=== PATIENT | female | born 1960 | race Two or more races ===

== ENCOUNTER 2021-08-30 14:26 | Inpatient (IN) | payer MEDICAID ==
[~2021-08-30] VITALS: Ht 167.6 cm; Wt 84.7 kg
[~2021-08-30 14:26] MED LIST: AMOX500T86 PO; APIX5TAB PO; AZIT250T9 PO; BUPR-230; DEXT1SYP9 PO; OXCA600T3; PROZAC
[2021-08-30] MEDS ORDERED: AZITHROMYCIN 500MG/ 250ML 250 ML IV ONE (15:15)
[2021-08-30] MEDS ORDERED: methylPREDNISolone SOD SUCC 125 MG/2 ML VL IV ONE (15:15)
[2021-08-30] MEDS ORDERED: CHOLECALCIFEROL (VITD3) 2,000 UNIT CAP/TAB PO ONE (15:15)
[2021-08-30] MEDS ORDERED: ASCORBIC ACID 500 MG TAB PO ONE (15:15)
[2021-08-30] MEDS ORDERED: ZINC SULFATE 220mg CAP or TAB PO ONE (15:15)
[2021-08-30] MEDS ORDERED: ACETAMINOPHEN 325 MG TAB PO ONE (15:30)
[2021-08-30 15:56] LABS: Basophils # (auto) 0 10 ^3/uL (0-0.2); Basophils % (auto) 0.3 % (0.0-2.0); Eosinophils # (auto) 0 10 ^3/uL (0-0.8); Hematocrit 37.3 % (36.0-46.0); Hemoglobin 12.6 g/dL (12.2-16.2); Lymphocytes # (auto) 0.8 10 ^3/uL (0.4-5.4); Lymphocytes % (auto) 10.7 % (10.0-50.0); Mean Corpuscular Hemoglobin 30.2 pg (28.0-32.0); Mean Corpuscular Hgb Conc. 33.7 g/dL (32.0-36.0); Mean Corpuscular Volume 89.7 fL (80.0-100.0); Monocytes # (auto) 1.2 10 ^3/uL (0-1.3); Monocytes % (auto) 15.9 % (0.0-12.0); Neutrophils # (auto) 5.7 10 ^3/uL (1.6-8.6); Neutrophils % (auto) 73.1 % (37.0-80.0); Red Blood Cells 4.15 10^6/uL (4.0-5.20); Red Cell Distribution Width 13.9 % (11.8-14.3); White Blood Cell 7.7 10^3/uL (4.4-10.8)
[2021-08-30 16:15] LABS: Albumin 2.8 g/dL (3.4-5.0); Calcium 7.4 mg/dL (8.5-10.1); Potassium 4.3 mmol/L (3.5-5.1)
[2021-08-30] MEDS ORDERED: IBUPROFEN 400 MG TAB PO ONE (16:15)
[2021-08-30 16:22] LABS: Bilirubin, Total 0.4 mg/dL (0.2-1.0); CRP High Sensitivity 14.5 mg/dL (< 0.3); Total Protein 6.9 g/dL (6.4-8.2)
[2021-08-30] MEDS ORDERED: NITROGLYCERIN 0.4 MG SL TAB SL PRN ×2 (17:30→19:15)
[2021-08-30] MEDS ORDERED: MORPHINE SULFATE INJECTION 2 MG/ML SYRG IV PRN ×3 (17:30→19:15)
[2021-08-30] MEDS ORDERED: REMDESIVIR PER PHARMACY 0 ML IV SCH (18:15)
[2021-08-30] MEDS ORDERED: FUROSEMIDE 20 MG/2 ML VIAL IV ONE (18:15)
[2021-08-30] MEDS ORDERED: FAMOTIDINE (10MG/ML) 2ML VL IV ONE (18:15)
[2021-08-30] MEDS ORDERED: ACETAMINOPHEN 500 MG TAB PO PRN (18:15)
[2021-08-30] MEDS ORDERED: ONDANSETRON HCL 4 MG/2 ML VIAL IV PRN (19:15)
[2021-08-30] MEDS ORDERED: HYDROcodone-ACET 5/325MG TAB PO PRN (19:15)
[2021-08-30] MEDS ORDERED: DOCUSATE SOD 100 MG CAP PO PRN (19:15)
[2021-08-30] MEDS ORDERED: ACETAMINOPHEN 325 MG TAB PO PRN (19:15)
[2021-08-30] MEDS ORDERED: ALUM & MAG HYDROX-SIMETH LIQ(MAALOX) 30 ML PO PRN (19:15)
[2021-08-30] MEDS ORDERED: LORazepam 0.5 MG TAB PO PRN (19:15)
[2021-08-30] MEDS ORDERED: ALBUMIN 25% 100 ML IV ONE (19:15)
[2021-08-30] MEDS: BUDESONIDE (INHALATION) 180 MCG IH IN SCH (19:45)
[2021-08-30 19:56] LABS: Basophils # (auto) 0 10 ^3/uL (0-0.2); Basophils % (auto) 0.4 % (0.0-2.0); Eosinophils # (auto) 0 10 ^3/uL (0-0.8); Hematocrit 36.6 % (36.0-46.0); Hemoglobin 12.6 g/dL (12.2-16.2); Lymphocytes # (auto) 0.5 10 ^3/uL (0.4-5.4); Lymphocytes % (auto) 6.7 % (10.0-50.0); Mean Corpuscular Hemoglobin 30.5 pg (28.0-32.0); Mean Corpuscular Hgb Conc. 34.4 g/dL (32.0-36.0); Mean Corpuscular Volume 88.9 fL (80.0-100.0); Monocytes % (auto) 12.8 % (0.0-12.0); Neutrophils % (auto) 80.1 % (37.0-80.0); Red Blood Cells 4.12 10^6/uL (4.0-5.20); Red Cell Distribution Width 14.1 % (11.8-14.3); White Blood Cell 7.5 10^3/uL (4.4-10.8)
[2021-08-30 20:03] LABS: Potassium 4.8 mmol/L (3.5-5.1)
[2021-08-30] MEDS: ALBUTEROL SULF HFA 90MCG INH 200DOSE IN PRN (20:05)
[2021-08-30 20:14] LABS: Albumin 2.8 g/dL (3.4-5.0); BUN/Creatinine Ratio 13.9; Bilirubin, Total 0.4 mg/dL (0.2-1.0); CRP High Sensitivity 15.3 mg/dL (< 0.3); Calcium 7.5 mg/dL (8.5-10.1); Cholesterol 118 mg/dL (< 200); Magnesium 2.8 mg/dL (1.6-2.6); Total Protein 7.2 g/dL (6.4-8.2)
[2021-08-30 20:15] LABS: Thyroid Stimulating Hormone 0.71 uIU/mL (0.358-3.74)
[2021-08-30 20:18] LABS: HDL Cholesterol 30 mg/dL (40-59); LDL Cholesterol 71 mg/dL (< 100); Triglycerides 126 mg/dL (< 150)
[2021-08-30] MEDS ORDERED: REMDESIVIR 200 MG in NS 210ml LOADING DOSE ADULT IV ONE (21:00)
[2021-08-30] MEDS ORDERED: ENOXAPARIN SOD 40 MG/0.4 ML SYRINGE SC SCH (22:00)
[2021-08-30] MEDS: SODIUM CHLORIDE 0.9% 1,000 ML IV SCH ×2 (22:00→23:23)
[2021-08-30] MEDS: OXcarbazepine 300 MG TAB PO SCH (22:00)
[2021-08-30] MEDS: POTASSIUM CHL 20 Meq TABLET PO SCH (23:22)
[2021-08-30] MEDS: DOXYCYCLINE 100MG/250ML 250 ML IV SCH (23:22)
[2021-08-30] MEDS: APIXABAN 5 MG TAB PO SCH (23:22)
[2021-08-31 01:12] VITALS: BP 82/55
[2021-08-31] MEDS ORDERED: ALBUMIN 5% 250 ML IV ONE (02:30)
[2021-08-31] MEDS ORDERED: FUROSEMIDE 20 MG/2 ML VIAL IV SCH (06:00)
[2021-08-31] MEDS: ALBUMIN 25% 100 ML IV SCH ×3 (06:54→22:00)
[2021-08-31] MEDS ORDERED: buPROPion HCL 75 MG TAB PO SCH (07:00)
[2021-08-31] MEDS ORDERED: FAMOTIDINE (10MG/ML) 2ML VL IV SCH (10:00)
[2021-08-31] MEDS: DOXYCYCLINE 100MG/250ML 250 ML IV SCH ×2 (10:40→22:00)
[2021-08-31] MEDS: DexAMETHasone SOD PHOS 10MG/1ML VIAL INJ IV SCH (10:40)
[2021-08-31] MEDS: APIXABAN 5 MG TAB PO SCH (10:40)
[2021-08-31] MEDS: POTASSIUM CHL 20 Meq TABLET PO SCH ×2 (10:40→22:00)
[2021-08-31] MEDS: ASCORBIC ACID 1,000 MG TAB PO SCH (10:41)
[2021-08-31] MEDS: OXcarbazepine 300 MG TAB PO SCH (10:41)
[2021-08-31] MEDS: IVERMECTIN 3 MG TAB PO SCH (10:41)
[2021-08-31] MEDS: CHOLECALCIFEROL (VITD3) 2,000 UNIT CAP/TAB PO SCH (10:41)
[2021-08-31 11:02] LABS: Alcohol, Urine < 3.0 mg/dL (0-10); Amphetamine Screen, Urine NEGATIVE (NEGATIVE); Barbiturate Scree,Urine NEGATIVE (NEGATIVE); Benzodiazephine Screen, Urine NEGATIVE (NEGATIVE); Cannabinoid Screen, Urine NEGATIVE (NEGATIVE); Cocaine Screen, Urine NEGATIVE (NEGATIVE); Opiate Scree,Urine NEGATIVE (NEGATIVE); Phencyclidine Screen, Urine NEGATIVE (NEGATIVE)
[2021-08-31] MEDS: ALBUTEROL SULF HFA 90MCG INH 200DOSE IN PRN ×2 (11:07→19:08)
[2021-08-31] MEDS: BUDESONIDE (INHALATION) 180 MCG IH IN SCH ×2 (11:07→19:07)
[2021-08-31] MEDS ORDERED: cefTRIAXone 1GM/50ML D5W 50 ML IV ONE (14:15)
[2021-08-31] MEDS ORDERED: ALBUMIN 25% 50 ML IV ONE (14:23)
[2021-08-31 14:50] LABS: Basophils # (auto) 0 10 ^3/uL (0-0.2); Basophils % (auto) 0.3 % (0.0-2.0); Eosinophils # (auto) 0 10 ^3/uL (0-0.8); Hematocrit 39.1 % (36.0-46.0); Hemoglobin 12.9 g/dL (12.2-16.2); Lymphocytes # (auto) 0.7 10 ^3/uL (0.4-5.4); Mean Corpuscular Hemoglobin 30.1 pg (28.0-32.0); Mean Corpuscular Volume 91.1 fL (80.0-100.0); Monocytes # (auto) 1.1 10 ^3/uL (0-1.3); Monocytes % (auto) 9.2 % (0.0-12.0); Neutrophils # (auto) 9.8 10 ^3/uL (1.6-8.6); Neutrophils % (auto) 84.5 % (37.0-80.0); Red Blood Cells 4.29 10^6/uL (4.0-5.20); Red Cell Distribution Width 14.3 % (11.8-14.3); White Blood Cell 11.6 10^3/uL (4.4-10.8)
[2021-08-31 15:03] LABS: INR 1.06 (0.9-1.15)
[2021-08-31 15:06] LABS: Albumin 3.5 g/dL (3.4-5.0); Calcium 7.9 mg/dL (8.5-10.1); Potassium 3.9 mmol/L (3.5-5.1)
[2021-08-31 15:09] LABS: BUN/Creatinine Ratio 16.1; Bilirubin, Total 0.4 mg/dL (0.2-1.0); Phosphorus 2.6 mg/dL (2.5-4.90); Total Protein 7.7 g/dL (6.4-8.2)
[2021-08-31] MEDS: REMDESIVIR 100mg 100 MG in SODIUM CHL 0.9% 230 ML IV SCH (15:17)
[2021-08-31] MEDS ORDERED: TOCILIZUMAB 400 MG in SODIUM CHL 0.9% 80 ML IV SCH (22:00)
[2021-08-31] MEDS ORDERED: busPIRone HCL 10 MG TAB PO SCH (22:00)
[2021-08-31] MEDS: ENOXAPARIN SOD 80 MG/0.8ML SYRINGE SC SCH (22:00)
[2021-08-31] MEDS ORDERED: risperiDONE 1 MG TAB PO SCH (22:00)
[2021-08-31] MEDS ORDERED: traZODone HCL 50 MG TAB PO SCH (22:00)
[2021-09-01] MEDS: ALBUTEROL SULF HFA 90MCG INH 200DOSE IN PRN ×2 (07:09→23:26)
[2021-09-01] MEDS: BUDESONIDE (INHALATION) 180 MCG IH IN SCH ×2 (07:10→19:36)
[2021-09-01] MEDS: cefTRIAXone 1GM/50ML D5W 50 ML IV SCH (08:37)
[2021-09-01] MEDS ORDERED: OXcarbazepine 300 MG TAB PO SCH (10:00)
[2021-09-01] MEDS: DexAMETHasone SOD PHOS 10MG/1ML VIAL INJ IV SCH (10:17)
[2021-09-01] MEDS: FUROSEMIDE 20 MG/2 ML VIAL IV SCH (10:18)
[2021-09-01] MEDS: DOXYCYCLINE 100MG/250ML 250 ML IV SCH ×2 (10:18→22:46)
[2021-09-01] MEDS: IVERMECTIN 3 MG TAB PO SCH (10:18)
[2021-09-01] MEDS: FAMOTIDINE (10MG/ML) 2ML VL IV SCH (10:18)
[2021-09-01] MEDS: POTASSIUM CHL 20 Meq TABLET PO SCH ×2 (10:18→22:46)
[2021-09-01] MEDS: CHOLECALCIFEROL (VITD3) 2,000 UNIT CAP/TAB PO SCH (10:19)
[2021-09-01] MEDS: ASCORBIC ACID 1,000 MG TAB PO SCH (10:19)
[2021-09-01] MEDS: ENOXAPARIN SOD 80 MG/0.8ML SYRINGE SC SCH ×2 (10:19→22:46)
[2021-09-01 10:33] LABS: Albumin 3.5 g/dL (3.4-5.0); Calcium 7.8 mg/dL (8.5-10.1); Potassium 4.5 mmol/L (3.5-5.1)
[2021-09-01 10:36] LABS: BUN/Creatinine Ratio 24.1; Bilirubin, Total 0.4 mg/dL (0.2-1.0); Total Protein 6.6 g/dL (6.4-8.2)
[2021-09-01] MEDS: REMDESIVIR 100mg 100 MG in SODIUM CHL 0.9% 230 ML IV SCH (15:06)
[2021-09-01] MEDS: OXcarbazepine 300 MG TAB PO SCH (19:06)
[2021-09-01] MEDS: busPIRone HCL 10 MG TAB PO SCH (19:07)
[2021-09-01] MEDS: traZODone HCL 50 MG TAB PO SCH (19:07)
[2021-09-01] MEDS: risperiDONE 1 MG TAB PO SCH (19:07)
[2021-09-02] MEDS: ALBUTEROL SULF HFA 90MCG INH 200DOSE IN PRN ×2 (06:14→20:55)
[2021-09-02] MEDS: BUDESONIDE (INHALATION) 180 MCG IH IN SCH ×2 (06:14→19:56)
[2021-09-02] MEDS: OXcarbazepine 300 MG TAB PO SCH ×2 (07:07→19:00)
[2021-09-02 07:53] LABS: Albumin 3.2 g/dL (3.4-5.0); Calcium 7.8 mg/dL (8.5-10.1); Potassium 4.7 mmol/L (3.5-5.1)
[2021-09-02 07:57] LABS: BUN/Creatinine Ratio 28.6; Bilirubin, Total 0.8 mg/dL (0.2-1.0); Total Protein 6.4 g/dL (6.4-8.2)
[2021-09-02] MEDS: cefTRIAXone 1GM/50ML D5W 50 ML IV SCH (08:34)
[2021-09-02] MEDS: DexAMETHasone SOD PHOS 10MG/1ML VIAL INJ IV SCH (12:50)
[2021-09-02] MEDS: IVERMECTIN 3 MG TAB PO SCH (12:51)
[2021-09-02] MEDS: ASCORBIC ACID 1,000 MG TAB PO SCH (12:51)
[2021-09-02] MEDS: FUROSEMIDE 20 MG/2 ML VIAL IV SCH (12:51)
[2021-09-02] MEDS: FAMOTIDINE (10MG/ML) 2ML VL IV SCH (12:51)
[2021-09-02] MEDS: POTASSIUM CHL 20 Meq TABLET PO SCH ×2 (12:51→21:44)
[2021-09-02] MEDS: ENOXAPARIN SOD 80 MG/0.8ML SYRINGE SC SCH ×2 (12:52→21:43)
[2021-09-02] MEDS: CHOLECALCIFEROL (VITD3) 2,000 UNIT CAP/TAB PO SCH (12:52)
[2021-09-02] MEDS: DOXYCYCLINE 100MG/250ML 250 ML IV SCH ×2 (13:11→21:43)
[2021-09-02] MEDS ORDERED: FUROSEMIDE 40 MG/4 ML VIAL IV ONE (13:30)
[2021-09-02] MEDS: REMDESIVIR 100mg 100 MG in SODIUM CHL 0.9% 230 ML IV SCH (15:18)
[2021-09-02 18:37] VITALS: BP 116/66
[2021-09-02] MEDS ORDERED: LEXAPRO 10MG PO SCH (19:00)
[2021-09-02] MEDS: risperiDONE 1 MG TAB PO SCH (19:01)
[2021-09-02] MEDS: traZODone HCL 50 MG TAB PO SCH (19:01)
[2021-09-02] MEDS: busPIRone HCL 10 MG TAB PO SCH (19:01)
[2021-09-02 19:56] VITALS: BP 116/66
[2021-09-02 22:00] VITALS: BP 121/70
[2021-09-02 22:36] VITALS: BP 121/70
[2021-09-02 22:59] VITALS: BP 121/70
[2021-09-03] VITALS (8 sets, daily range): BP systolic 101–122; BP diastolic 51–73
[2021-09-03 06:37] LABS: Basophils # (auto) 0 10 ^3/uL (0-0.2); Basophils % (auto) 0.2 % (0.0-2.0); Eosinophils # (auto) 0 10 ^3/uL (0-0.8); Eosinophils % (auto) 0.1 % (0.0-7.0); Hematocrit 38.1 % (36.0-46.0); Lymphocytes # (auto) 0.5 10 ^3/uL (0.4-5.4); Lymphocytes % (auto) 3.2 % (10.0-50.0); Mean Corpuscular Hemoglobin 30.5 pg (28.0-32.0); Mean Corpuscular Volume 89.7 fL (80.0-100.0); Neutrophils # (auto) 13.3 10 ^3/uL (1.6-8.6); Neutrophils % (auto) 89.5 % (37.0-80.0); Red Blood Cells 4.25 10^6/uL (4.0-5.20); Red Cell Distribution Width 14.6 % (11.8-14.3); White Blood Cell 14.8 10^3/uL (4.4-10.8)
[2021-09-03] MEDS: OXcarbazepine 300 MG TAB PO SCH ×2 (06:51→18:34)
[2021-09-03 06:53] LABS: Calcium 7.9 mg/dL (8.5-10.1)
[2021-09-03 06:59] LABS: Albumin 3.1 g/dL (3.4-5.0); BUN/Creatinine Ratio 29.4; Bilirubin, Total 0.8 mg/dL (0.2-1.0); Total Protein 6.4 g/dL (6.4-8.2)
[2021-09-03] MEDS: cefTRIAXone 1GM/50ML D5W 50 ML IV SCH (08:37)
[2021-09-03] MEDS: FUROSEMIDE 20 MG/2 ML VIAL IV SCH (09:36)
[2021-09-03] MEDS: FAMOTIDINE (10MG/ML) 2ML VL IV SCH (09:37)
[2021-09-03] MEDS: ASCORBIC ACID 1,000 MG TAB PO SCH (09:38)
[2021-09-03] MEDS: IVERMECTIN 3 MG TAB PO SCH (09:38)
[2021-09-03] MEDS: POTASSIUM CHL 20 Meq TABLET PO SCH ×2 (09:38→21:49)
[2021-09-03] MEDS: DOXYCYCLINE 100MG/250ML 250 ML IV SCH ×2 (09:38→21:44)
[2021-09-03] MEDS: CHOLECALCIFEROL (VITD3) 2,000 UNIT CAP/TAB PO SCH (09:39)
[2021-09-03] MEDS: ENOXAPARIN SOD 80 MG/0.8ML SYRINGE SC SCH ×2 (09:39→21:44)
[2021-09-03] MEDS: DexAMETHasone SOD PHOS 10MG/1ML VIAL INJ IV SCH (10:34)
[2021-09-03] MEDS: guaiFENesin-DM 100/10mg/5ml SYR PO PRN ×2 (10:35→17:20)
[2021-09-03] MEDS ORDERED: OXCA600T3 PO (12:10)
[2021-09-03] MEDS ORDERED: RISP0.5T45 PO (12:16)
[2021-09-03] MEDS ORDERED: ESCI-28 PO (12:16)
[2021-09-03] MEDS ORDERED: TRAZ100T3 PO (12:16)
[2021-09-03] MEDS ORDERED: BUSP10TA90 PO (12:16)
[2021-09-03] MEDS: ALBUTEROL SULF HFA 90MCG INH 200DOSE IN PRN ×2 (14:56→21:53)
[2021-09-03] MEDS: BUDESONIDE (INHALATION) 180 MCG IH IN SCH ×2 (14:56→21:53)
[2021-09-03] MEDS: REMDESIVIR 100mg 100 MG in SODIUM CHL 0.9% 230 ML IV SCH (15:25)
[2021-09-03] MEDS: LEXAPRO 10MG PO SCH (18:34)
[2021-09-03] MEDS: traZODone HCL 50 MG TAB PO SCH (18:34)
[2021-09-03] MEDS: busPIRone HCL 10 MG TAB PO SCH (18:34)
[2021-09-03] MEDS ORDERED: RISP1TAB63 PO (18:46)
[2021-09-03] MEDS ORDERED: risperiDONE 1 MG TAB PO SCH (19:00)
[2021-09-04 05:00] VITALS: BP 113/57
[2021-09-04] MEDS: OXcarbazepine 300 MG TAB PO SCH ×2 (06:37→17:18)
[2021-09-04] MEDS: ALBUTEROL SULF HFA 90MCG INH 200DOSE IN PRN ×2 (06:47→19:30)
[2021-09-04] MEDS: BUDESONIDE (INHALATION) 180 MCG IH IN SCH ×2 (06:47→19:30)
[2021-09-04] MEDS: cefTRIAXone 1GM/50ML D5W 50 ML IV SCH (09:04)
[2021-09-04] MEDS: DexAMETHasone SOD PHOS 10MG/1ML VIAL INJ IV SCH (09:06)
[2021-09-04] MEDS: FUROSEMIDE 20 MG/2 ML VIAL IV SCH (09:09)
[2021-09-04] MEDS: FAMOTIDINE (10MG/ML) 2ML VL IV SCH (09:09)
[2021-09-04] MEDS: DOXYCYCLINE 100MG/250ML 250 ML IV SCH (09:10)
[2021-09-04] MEDS: POTASSIUM CHL 20 Meq TABLET PO SCH (09:10)
[2021-09-04] MEDS: IVERMECTIN 3 MG TAB PO SCH (09:10)
[2021-09-04] MEDS: CHOLECALCIFEROL (VITD3) 2,000 UNIT CAP/TAB PO SCH (09:11)
[2021-09-04] MEDS: ENOXAPARIN SOD 80 MG/0.8ML SYRINGE SC SCH ×2 (09:11→21:20)
[2021-09-04] MEDS: ASCORBIC ACID 1,000 MG TAB PO SCH (09:11)
[2021-09-04] MEDS: busPIRone HCL 10 MG TAB PO SCH (17:16)
[2021-09-04] MEDS: traZODone HCL 50 MG TAB PO SCH (17:17)
[2021-09-04] MEDS: risperiDONE 1 MG TAB PO SCH (17:17)
[2021-09-04] MEDS: LEXAPRO 10MG PO SCH (17:47)
[2021-09-04 18:30] VITALS: BP 105/50
[2021-09-04 18:32] VITALS: BP 104/50
[2021-09-04 21:11] VITALS: BP 115/53
[2021-09-04 22:00] VITALS: BP 121/69
[2021-09-05] VITALS (9 sets, daily range): BP systolic 111–125; BP diastolic 53–73
[2021-09-05] MEDS: guaiFENesin-DM 100/10mg/5ml SYR PO PRN (03:33)
[2021-09-05] MEDS: ALBUTEROL SULF HFA 90MCG INH 200DOSE IN PRN ×2 (06:04→19:30)
[2021-09-05] MEDS: BUDESONIDE (INHALATION) 180 MCG IH IN SCH ×2 (06:05→19:30)
[2021-09-05] MEDS: OXcarbazepine 300 MG TAB PO SCH ×2 (06:09→16:46)
[2021-09-05 07:10] LABS: Albumin 2.8 g/dL (3.4-5.0); Calcium 8.3 mg/dL (8.5-10.1); Potassium 4.1 mmol/L (3.5-5.1)
[2021-09-05 07:25] LABS: Bilirubin, Total 0.7 mg/dL (0.2-1.0); Total Protein 6.5 g/dL (6.4-8.2)
[2021-09-05] MEDS: FUROSEMIDE 20 MG/2 ML VIAL IV SCH (08:00)
[2021-09-05] MEDS: DexAMETHasone SOD PHOS 10MG/1ML VIAL INJ IV SCH (08:00)
[2021-09-05] MEDS: FAMOTIDINE (10MG/ML) 2ML VL IV SCH (08:00)
[2021-09-05] MEDS: cefTRIAXone 1GM/50ML D5W 50 ML IV SCH (08:00)
[2021-09-05] MEDS: ASCORBIC ACID 1,000 MG TAB PO SCH (08:01)
[2021-09-05] MEDS: ENOXAPARIN SOD 80 MG/0.8ML SYRINGE SC SCH (08:01)
[2021-09-05] MEDS: CHOLECALCIFEROL (VITD3) 2,000 UNIT CAP/TAB PO SCH (08:01)
[2021-09-05] MEDS: LEXAPRO 10MG PO SCH (16:45)
[2021-09-05] MEDS: traZODone HCL 50 MG TAB PO SCH (16:45)
[2021-09-05] MEDS: busPIRone HCL 10 MG TAB PO SCH (16:45)
[2021-09-05] MEDS: risperiDONE 1 MG TAB PO SCH (16:45)
[2021-09-05] MEDS: APIXABAN 5 MG TAB PO SCH (22:00)
[2021-09-06] VITALS (50 sets, daily range): BP systolic 70–151; BP diastolic 45–65
[2021-09-06] MEDS: OXcarbazepine 300 MG TAB PO SCH ×2 (06:28→19:00)
[2021-09-06] MEDS: ALBUTEROL SULF HFA 90MCG INH 200DOSE IN PRN (06:50)
[2021-09-06] MEDS: BUDESONIDE (INHALATION) 180 MCG IH IN SCH (06:50)
[2021-09-06] MEDS: cefTRIAXone 1GM/50ML D5W 50 ML IV SCH (08:51)
[2021-09-06] MEDS: DexAMETHasone SOD PHOS 10MG/1ML VIAL INJ IV SCH (08:51)
[2021-09-06] MEDS: FUROSEMIDE 20 MG/2 ML VIAL IV SCH (08:54)
[2021-09-06] MEDS: APIXABAN 5 MG TAB PO SCH (08:55)
[2021-09-06] MEDS: FAMOTIDINE (10MG/ML) 2ML VL IV SCH (08:55)
[2021-09-06] MEDS: CHOLECALCIFEROL (VITD3) 2,000 UNIT CAP/TAB PO SCH (08:55)
[2021-09-06] MEDS: ASCORBIC ACID 1,000 MG TAB PO SCH (08:55)
[2021-09-06] MEDS ORDERED: LORazepam 2MG/ML-1ML VIAL ONE (11:30)
[2021-09-06] MEDS ORDERED: LORazepam 2MG/ML-1ML VIAL IV PRN (11:45)
[2021-09-06] MEDS ORDERED: ROCURONIUM 10MG/ML 10ML VIAL IV ONE (12:44)
[2021-09-06] MEDS ORDERED: ETOMIDATE (2MG/ML) 20ML VIAL IV ONE (12:44)
[2021-09-06] MEDS ORDERED: SUCCINYLCHOLINE CHLORIDE 20 MG/ML 10ML VIAL IV ONE (12:44)
[2021-09-06] MEDS ORDERED: MIDAZOLAM DRIP 50 mg/50mL 50 ML IV ONE (12:48)
[2021-09-06] MEDS ORDERED: fentaNYL Drip 2500mCg/250mlNS 250 ML IV ONE (12:48)
[2021-09-06] MEDS ORDERED: MIDAZOLAM HCL 5 MG/ML-1ML VIAL ONE (12:50)
[2021-09-06] MEDS ORDERED: PROPOFOL 100 ML IV ONE (13:31)
[2021-09-06] MEDS: ATRACURIUM BESYLATE 1,000 MG in D5W 5% 150 ML IV SCH (13:45)
[2021-09-06] MEDS ORDERED: fentaNYL Drip 2500mCg/250mlNS 250 ML IV SCH ×2 (13:45)
[2021-09-06] MEDS ORDERED: PROPOFOL 100 ML IV SCH (13:45)
[2021-09-06] MEDS ORDERED: SODIUM CHLORIDE 0.9% 1,000 ML IV ONE ×3 (13:45)
[2021-09-06] MEDS: PROPOFOL 100 ML IV SCH (13:45)
[2021-09-06] MEDS ORDERED: MIDAZOLAM DRIP 50 mg/50mL 50 ML IV SCH (13:45)
[2021-09-06] MEDS ORDERED: NOREPINEPHRINE 8 MG/250ML KIT 250 ML IV SCH ×3 (13:45)
[2021-09-06 15:15] LABS: Basophils # (auto) 0 10 ^3/uL (0-0.2); Eosinophils # (auto) 0.1 10 ^3/uL (0-0.8); Hematocrit 35.3 % (36.0-46.0); Lymphocytes # (auto) 0.2 10 ^3/uL (0.4-5.4); Lymphocytes % (auto) 1.2 % (10.0-50.0); Red Cell Distribution Width 14.6 % (11.8-14.3)
[2021-09-06 15:27] LABS: INR 1.53 (0.9-1.15); Partial Thromboplastin Time 26.7 sec (23.6-33.0)
[2021-09-06 15:28] LABS: Basophils % (auto) 0.1 % (0.0-2.0); Eosinophils % (auto) 0.7 % (0.0-7.0); Hemoglobin 11.7 g/dL (12.2-16.2); Mean Corpuscular Hgb Conc. 33.1 g/dL (32.0-36.0); Mean Corpuscular Volume 90.7 fL (80.0-100.0); Monocytes # (auto) 0.4 10 ^3/uL (0-1.3); Monocytes % (auto) 3.1 % (0.0-12.0); Neutrophils # (auto) 13.9 10 ^3/uL (1.6-8.6); Neutrophils % (auto) 94.9 % (37.0-80.0); Potassium 3.6 mmol/L (3.5-5.1); Red Blood Cells 3.89 10^6/uL (4.0-5.20); White Blood Cell 14.6 10^3/uL (4.4-10.8)
[2021-09-06 15:37] LABS: Albumin 2.3 g/dL (3.4-5.0); BUN/Creatinine Ratio 39.7; Bilirubin, Total 0.6 mg/dL (0.2-1.0); Calcium 7.6 mg/dL (8.5-10.1); Magnesium 2.3 mg/dL (1.6-2.6); Phosphorus 3.5 mg/dL (2.5-4.90); Total Protein 5.6 g/dL (6.4-8.2)
[2021-09-06] MEDS: MIDAZOLAM DRIP 50 mg/50mL 50 ML IV SCH (18:20)
[2021-09-06] MEDS: busPIRone HCL 10 MG TAB PO SCH (19:00)
[2021-09-06] MEDS: LEXAPRO 10MG PO SCH (19:00)
[2021-09-06] MEDS ORDERED: PHENYLEPHRINE IV 250 ML IV ONE ×2 (21:17→22:57)
[2021-09-06] MEDS: PHENYLEPHRINE IV 250 ML IV SCH (21:46)
[2021-09-06] MEDS: MEROPENEM 1GM IVPB 100 ML IV SCH (21:47)
[2021-09-06] MEDS: PANTOPRAZOLE 40 MG/10 ML VIAL INJ IV SCH (21:47)
[2021-09-07] VITALS (108 sets, daily range): BP systolic 80–180; BP diastolic 44–74
[2021-09-07 04:21] LABS: Hemoglobin 12.2 g/dL (12.2-16.2); Mean Corpuscular Hemoglobin 30.5 pg (28.0-32.0); Mean Corpuscular Volume 92.5 fL (80.0-100.0); Red Cell Distribution Width 14.7 % (11.8-14.3); White Blood Cell 25.3 10^3/uL (4.4-10.8)
[2021-09-07 04:31] LABS: Albumin 2.1 g/dL (3.4-5.0); Calcium 7.9 mg/dL (8.5-10.1); Potassium 3.8 mmol/L (3.5-5.1)
[2021-09-07 04:34] LABS: BUN/Creatinine Ratio 27.4
[2021-09-07 04:36] LABS: Total Protein 6.1 g/dL (6.4-8.2)
[2021-09-07] MEDS: PHENYLEPHRINE IV 250 ML IV SCH ×3 (05:20→13:40)
[2021-09-07] MEDS: MIDAZOLAM DRIP 50 mg/50mL 50 ML IV SCH ×5 (05:21→18:53)
[2021-09-07 05:43] LABS: Basophils % (manual) 0 (0.0-2.0); Blast Cells 0; Eosinophils % (manual) 0 (0-7); Metamyelocytes % 0; Monocytes % (manual) 0 (0-12); Myelocytes % 0; Promyelocytes % 0; Reactive Lymphocytes 0
[2021-09-07 06:17] LABS: Urine Bacteria NONE SEEN /hpf (None Seen); Urine Blood 2+ /uL (Negative); Urine Hyaline Cast MANY /lpf (0 - 2); Urine Mucus FEW (None Seen); Urine Specific Gravity 1.026 (1.001-1.035); Urine WBC 9 /hpf (0 - 5)
[2021-09-07] MEDS: ALBUTEROL SULF 2.5 MG/0.5ML(0.5%) NEB SOLN NEB SCH ×3 (06:37→22:10)
[2021-09-07] MEDS: BUDESONIDE (INHALATION) 0.5 MG/2 ML NEB NEB SCH ×2 (06:37→22:10)
[2021-09-07] MEDS: MEROPENEM 1GM IVPB 100 ML IV SCH ×3 (06:41→22:06)
[2021-09-07] MEDS: OXcarbazepine 300 MG TAB PO SCH (06:41)
[2021-09-07] MEDS: fentaNYL Drip 2500mCg/250mlNS 250 ML IV SCH ×3 (09:55→20:47)
[2021-09-07] MEDS: PANTOPRAZOLE 40 MG/10 ML VIAL INJ IV SCH ×2 (10:01→22:06)
[2021-09-07] MEDS: FUROSEMIDE 40 MG/4 ML VIAL IV SCH (10:02)
[2021-09-07] MEDS: DexAMETHasone SOD PHOS 10MG/1ML VIAL INJ IV SCH (10:02)
[2021-09-07] MEDS: CHOLECALCIFEROL (VITD3) 2,000 UNIT CAP/TAB PO SCH (10:02)
[2021-09-07] MEDS: ATRACURIUM BESYLATE 1,000 MG in D5W 5% 150 ML IV SCH (10:03)
[2021-09-07] MEDS: PROPOFOL 100 ML IV SCH ×4 (10:04→20:45)
[2021-09-07 10:44] LABS: Band Neutrophils % (manual) 10; Lymphocytes % (manual) 7 (10.0-50.0)
[2021-09-07] MEDS ORDERED: ACETAMINOPHEN 650 mg PER 20.3 mL UD GT PRN (10:45)
[2021-09-07] MEDS: LINEZOLID 600MG/300ML 300 ML IV SCH ×2 (11:14→22:06)
[2021-09-07] MEDS: NOREPINEPHRINE BITARTRATE 16 MG in SODIUM CHL 0.9% 234 ML IV SCH ×2 (11:15→21:27)
[2021-09-07] MEDS: ENOXAPARIN SOD 40 MG/0.4 ML SYRINGE SC SCH (22:06)
[2021-09-08] VITALS (107 sets, daily range): BP systolic 107–138; BP diastolic 46–71
[2021-09-08] MEDS: PROPOFOL 100 ML IV SCH (00:33)
[2021-09-08] MEDS: fentaNYL Drip 2500mCg/250mlNS 250 ML IV SCH ×3 (04:35→21:22)
[2021-09-08 04:43] LABS: Hemoglobin 12.1 g/dL (12.2-16.2); Mean Corpuscular Hemoglobin 29.6 pg (28.0-32.0)
[2021-09-08 04:44] LABS: Hematocrit 37.6 % (36.0-46.0); Mean Corpuscular Volume 92.5 fL (80.0-100.0); Red Blood Cells 4.07 10^6/uL (4.0-5.20); Red Cell Distribution Width 14.9 % (11.8-14.3)
[2021-09-08 04:48] LABS: Albumin 1.9 g/dL (3.4-5.0); Calcium 8.6 mg/dL (8.5-10.1); Potassium 4.7 mmol/L (3.5-5.1)
[2021-09-08 04:52] LABS: BUN/Creatinine Ratio 20.4; Bilirubin, Total 0.3 mg/dL (0.2-1.0); Total Protein 6.6 g/dL (6.4-8.2)
[2021-09-08 05:00] LABS: White Blood Cell 33.1 10^3/uL (4.4-10.8)
[2021-09-08 05:02] LABS: Basophils % (manual) 0 (0.0-2.0); Blast Cells 0; Eosinophils % (manual) 0 (0-7); Metamyelocytes % 0; Myelocytes % 0; Promyelocytes % 0; Reactive Lymphocytes 0
[2021-09-08] MEDS: MEROPENEM 1GM IVPB 100 ML IV SCH ×2 (05:44→14:57)
[2021-09-08] MEDS: ALBUTEROL SULF 2.5 MG/0.5ML(0.5%) NEB SOLN NEB SCH ×3 (06:25→22:29)
[2021-09-08] MEDS: BUDESONIDE (INHALATION) 0.5 MG/2 ML NEB NEB SCH ×2 (06:25→22:29)
[2021-09-08] MEDS: MIDAZOLAM DRIP 50 mg/50mL 50 ML IV SCH ×3 (06:26→14:25)
[2021-09-08 08:23] LABS: Band Neutrophils % (manual) 15; Lymphocytes % (manual) 2 (10.0-50.0); Monocytes % (manual) 3 (0-12)
[2021-09-08] MEDS: PHENYLEPHRINE IV 250 ML IV SCH ×2 (08:25→14:40)
[2021-09-08] MEDS: NOREPINEPHRINE BITARTRATE 16 MG in SODIUM CHL 0.9% 234 ML IV SCH (09:58)
[2021-09-08] MEDS: LINEZOLID 600MG/300ML 300 ML IV SCH ×2 (10:23→22:36)
[2021-09-08] MEDS: DexAMETHasone SOD PHOS 10MG/1ML VIAL INJ IV SCH (10:23)
[2021-09-08] MEDS: PANTOPRAZOLE 40 MG/10 ML VIAL INJ IV SCH ×2 (10:23→22:47)
[2021-09-08] MEDS: CHOLECALCIFEROL (VITD3) 2,000 UNIT CAP/TAB PO SCH (10:23)
[2021-09-08] MEDS: FUROSEMIDE 40 MG/4 ML VIAL IV SCH (10:24)
[2021-09-08] MEDS: ENOXAPARIN SOD 40 MG/0.4 ML SYRINGE SC SCH ×2 (10:24→22:47)
[2021-09-08] MEDS ORDERED: DEXTROSE (50%) 50ML SYRG IV PRN (13:30)
[2021-09-08] MEDS: ATRACURIUM BESYLATE 1,000 MG in D5W 5% 150 ML IV SCH (13:45)
[2021-09-08] MEDS: InsuLIN REG 1unit/0.01ml Soln (100units/ml) SC SCH (17:30)
[2021-09-08] MEDS: ACCU-CHEK COMFORT CURVE STRIP VI SCH (17:30)
[2021-09-08] MEDS ORDERED: Jevity 1.2 Cal/Fiber 1 Liter GT SCH (17:45)
[2021-09-08] MEDS: CEFEPIME 1 GM in SODIUM CHL 0.9% 50 ML IV SCH (20:02)
[2021-09-09] VITALS (102 sets, daily range): BP systolic 91–167; BP diastolic 42–87
[2021-09-09] MEDS: ACCU-CHEK COMFORT CURVE STRIP VI SCH ×4 (00:29→17:39)
[2021-09-09] MEDS: PROPOFOL 100 ML IV SCH ×2 (04:00→17:43)
[2021-09-09] MEDS: NOREPINEPHRINE BITARTRATE 16 MG in SODIUM CHL 0.9% 234 ML IV SCH (04:00)
[2021-09-09 04:23] LABS: Hematocrit 33.6 % (36.0-46.0); Mean Corpuscular Hgb Conc. 32.7 g/dL (32.0-36.0); Mean Corpuscular Volume 91.9 fL (80.0-100.0); Red Blood Cells 3.65 10^6/uL (4.0-5.20); Red Cell Distribution Width 14.5 % (11.8-14.3)
[2021-09-09 04:32] LABS: Albumin 1.8 g/dL (3.4-5.0); Basophils % (manual) 0 (0.0-2.0); Blast Cells 0; Calcium 8.5 mg/dL (8.5-10.1); Eosinophils % (manual) 0 (0-7); Potassium 3.4 mmol/L (3.5-5.1); Promyelocytes % 0; Reactive Lymphocytes 0
[2021-09-09 04:34] LABS: BUN/Creatinine Ratio 22.9
[2021-09-09 04:37] LABS: Bilirubin, Total 0.3 mg/dL (0.2-1.0); Total Protein 6.1 g/dL (6.4-8.2)
[2021-09-09 05:35] LABS: Band Neutrophils % (manual) 18; Lymphocytes % (manual) 1 (10.0-50.0); Metamyelocytes % 1; Monocytes % (manual) 6 (0-12); Myelocytes % 1
[2021-09-09] MEDS: MIDAZOLAM DRIP 50 mg/50mL 50 ML IV SCH ×2 (05:43→17:44)
[2021-09-09] MEDS: InsuLIN REG 1unit/0.01ml Soln (100units/ml) SC SCH ×5 (06:00→17:40)
[2021-09-09] MEDS: CEFEPIME 1 GM in SODIUM CHL 0.9% 50 ML IV SCH ×3 (06:06→22:11)
[2021-09-09] MEDS: fentaNYL Drip 2500mCg/250mlNS 250 ML IV SCH ×2 (06:11→13:17)
[2021-09-09] MEDS: ALBUTEROL SULF 2.5 MG/0.5ML(0.5%) NEB SOLN NEB SCH ×3 (06:43→22:08)
[2021-09-09] MEDS: BUDESONIDE (INHALATION) 0.5 MG/2 ML NEB NEB SCH ×2 (06:43→22:08)
[2021-09-09] MEDS: PHENYLEPHRINE IV 250 ML IV SCH ×2 (07:20→15:40)
[2021-09-09] MEDS: Pro-Stat SF 30ml Vanilla GT SCH (10:00)
[2021-09-09] MEDS: CHOLECALCIFEROL (VITD3) 2,000 UNIT CAP/TAB PO SCH (10:00)
[2021-09-09] MEDS: ENOXAPARIN SOD 40 MG/0.4 ML SYRINGE SC SCH (10:00)
[2021-09-09] MEDS ORDERED: TPN PER PHARMACY 0 ML IV SCH (10:15)
[2021-09-09] MEDS: TOCILIZUMAB 400 MG in SODIUM CHL 0.9% 80 ML IV SCH ×2 (10:19→21:51)
[2021-09-09 10:34] LABS: Magnesium 2.7 mg/dL (1.6-2.6)
[2021-09-09 10:38] LABS: Phosphorus 2.7 mg/dL (2.5-4.90); Pre Albumin 6.2 mg/dL (20.0-40.0)
[2021-09-09] MEDS: DexAMETHasone SOD PHOS 10MG/1ML VIAL INJ IV SCH (10:48)
[2021-09-09] MEDS: PANTOPRAZOLE 40 MG/10 ML VIAL INJ IV SCH ×2 (10:49→22:12)
[2021-09-09] MEDS: LINEZOLID 600MG/300ML 300 ML IV SCH ×2 (11:36→20:37)
[2021-09-09] MEDS ORDERED: POTASSIUM PHOSP 22MEQ(15MMOLE) in NS 100 ML IV ONE (12:00)
[2021-09-09] MEDS ORDERED: INSULIN LANTUS (GLARGINE) 1 /0.01ml (100units/ml) SC ONE (12:15)
[2021-09-09] MEDS: FUROSEMIDE 20 MG/2 ML VIAL IV SCH (13:38)
[2021-09-09] MEDS: ATRACURIUM BESYLATE 1,000 MG in D5W 5% 150 ML IV SCH (13:45)
[2021-09-09] MEDS: METOCLOPRAMIDE HCL 5MG/ml INJ 2ml VIAL IV SCH ×2 (14:20→21:51)
[2021-09-09] MEDS: PANTOPRAZOLE 40mg/50ML NS AE 50 ML IV SCH (19:30)
[2021-09-09] MEDS ORDERED: TPN PER PHARMACY IV NR ×7 (20:00)
[2021-09-09] MEDS: INSULIN LANTUS (GLARGINE) 1 /0.01ml (100units/ml) SC SCH (21:52)
[2021-09-09 22:04] LABS: Hemoglobin 10.8 g/dL (12.2-16.2)
[2021-09-10] VITALS (106 sets, daily range): BP systolic 76–143; BP diastolic 40–75
[2021-09-10] MEDS: InsuLIN REG 1unit/0.01ml Soln (100units/ml) SC SCH ×7 (00:03→23:44)
[2021-09-10] MEDS: ACCU-CHEK COMFORT CURVE STRIP VI SCH ×4 (00:03→17:56)
[2021-09-10] MEDS: PROPOFOL 100 ML IV SCH ×3 (00:08→17:00)
[2021-09-10] MEDS: fentaNYL Drip 2500mCg/250mlNS 250 ML IV SCH (01:10)
[2021-09-10] MEDS: PANTOPRAZOLE 40mg/50ML NS AE 50 ML IV SCH ×5 (03:05→21:53)
[2021-09-10] MEDS: MIDAZOLAM DRIP 50 mg/50mL 50 ML IV SCH (03:48)
[2021-09-10 04:43] LABS: Hematocrit 31.3 % (36.0-46.0); Hemoglobin 10.3 g/dL (12.2-16.2); Mean Corpuscular Hemoglobin 30.1 pg (28.0-32.0); Mean Corpuscular Hgb Conc. 32.8 g/dL (32.0-36.0); Mean Corpuscular Volume 91.9 fL (80.0-100.0); Red Cell Distribution Width 14.7 % (11.8-14.3)
[2021-09-10 05:00] LABS: Basophils % (manual) 0 (0.0-2.0); Blast Cells 0; Promyelocytes % 0; Reactive Lymphocytes 0
[2021-09-10 05:21] LABS: Potassium 3.4 mmol/L (3.5-5.1)
[2021-09-10 05:24] LABS: Albumin 1.8 g/dL (3.4-5.0); BUN/Creatinine Ratio 37.5; Calcium 8.3 mg/dL (8.5-10.1); Magnesium 2.9 mg/dL (1.6-2.6)
[2021-09-10 05:27] LABS: Bilirubin, Total 0.3 mg/dL (0.2-1.0); Phosphorus 2.4 mg/dL (2.5-4.90); Total Protein 5.7 g/dL (6.4-8.2)
[2021-09-10] MEDS: CEFEPIME 1 GM in SODIUM CHL 0.9% 50 ML IV SCH ×3 (05:36→23:42)
[2021-09-10] MEDS: METOCLOPRAMIDE HCL 5MG/ml INJ 2ml VIAL IV SCH ×3 (05:37→21:54)
[2021-09-10] MEDS: BUDESONIDE (INHALATION) 0.5 MG/2 ML NEB NEB SCH ×2 (06:12→23:22)
[2021-09-10] MEDS: ALBUTEROL SULF 2.5 MG/0.5ML(0.5%) NEB SOLN NEB SCH ×3 (06:12→23:22)
[2021-09-10] MEDS: PHENYLEPHRINE IV 250 ML IV SCH ×2 (07:00→07:44)
[2021-09-10 07:25] LABS: Band Neutrophils % (manual) 5; Eosinophils % (manual) 1 (0-7); Lymphocytes % (manual) 4 (10.0-50.0); Metamyelocytes % 1; Monocytes % (manual) 1 (0-12); Myelocytes % 1
[2021-09-10] MEDS: Pro-Stat SF 30ml Vanilla GT SCH (07:44)
[2021-09-10] MEDS: DexAMETHasone SOD PHOS 10MG/1ML VIAL INJ IV SCH (09:44)
[2021-09-10] MEDS: CHOLECALCIFEROL (VITD3) 2,000 UNIT CAP/TAB PO SCH (09:45)
[2021-09-10] MEDS: FUROSEMIDE 20 MG/2 ML VIAL IV SCH (09:45)
[2021-09-10] MEDS: LINEZOLID 600MG/300ML 300 ML IV SCH ×2 (09:45→21:54)
[2021-09-10] MEDS ORDERED: POTASSIUM PHOSP 22MEQ(15MMOLE) in NS 100 ML IV ONE (10:00)
[2021-09-10] MEDS: INSULIN LANTUS (GLARGINE) 1 /0.01ml (100units/ml) SC SCH ×2 (10:15→23:43)
[2021-09-10] MEDS: NOREPINEPHRINE BITARTRATE 16 MG in SODIUM CHL 0.9% 234 ML IV SCH (10:15)
[2021-09-10] MEDS: ATRACURIUM BESYLATE 1,000 MG in D5W 5% 150 ML IV SCH (13:22)
[2021-09-10 18:05] LABS: Hematocrit 31.6 % (36.0-46.0); Hemoglobin 10.4 g/dL (12.2-16.2)
[2021-09-10] MEDS: TPN PER PHARMACY IV NR ×5 (20:54)
[2021-09-11] VITALS (93 sets, daily range): BP systolic 85–150; BP diastolic 34–77
[2021-09-11] MEDS: ACCU-CHEK COMFORT CURVE STRIP VI SCH ×5 (00:05→23:33)
[2021-09-11] MEDS: PANTOPRAZOLE 40mg/50ML NS AE 50 ML IV SCH ×5 (02:35→21:08)
[2021-09-11] MEDS: fentaNYL Drip 2500mCg/250mlNS 250 ML IV SCH ×2 (05:15→09:05)
[2021-09-11] MEDS: BUDESONIDE (INHALATION) 0.5 MG/2 ML NEB NEB SCH (06:05)
[2021-09-11] MEDS: ALBUTEROL SULF 2.5 MG/0.5ML(0.5%) NEB SOLN NEB SCH ×2 (06:05→14:44)
[2021-09-11 06:39] LABS: Basophils # (auto) 0.1 10 ^3/uL (0-0.2); Basophils % (auto) 0.9 % (0.0-2.0); Eosinophils # (auto) 0.1 10 ^3/uL (0-0.8); Eosinophils % (auto) 1.4 % (0.0-7.0); Hematocrit 31.9 % (36.0-46.0); Hemoglobin 10.6 g/dL (12.2-16.2); Lymphocytes # (auto) 0.8 10 ^3/uL (0.4-5.4); Lymphocytes % (auto) 7.4 % (10.0-50.0); Mean Corpuscular Hemoglobin 30.3 pg (28.0-32.0); Mean Corpuscular Hgb Conc. 33.4 g/dL (32.0-36.0); Mean Corpuscular Volume 90.9 fL (80.0-100.0); Monocytes % (auto) 9.6 % (0.0-12.0); Neutrophils # (auto) 8.7 10 ^3/uL (1.6-8.6); Neutrophils % (auto) 80.7 % (37.0-80.0); Nucleated Red Blood Cells % 0.2 %; Red Blood Cells 3.51 10^6/uL (4.0-5.20); Red Cell Distribution Width 14.9 % (11.8-14.3); White Blood Cell 10.8 10^3/uL (4.4-10.8)
[2021-09-11] MEDS: CEFEPIME 1 GM in SODIUM CHL 0.9% 50 ML IV SCH ×3 (06:48→22:10)
[2021-09-11] MEDS: METOCLOPRAMIDE HCL 5MG/ml INJ 2ml VIAL IV SCH ×3 (06:48→21:08)
[2021-09-11 06:51] LABS: Albumin 1.7 g/dL (3.4-5.0); Potassium 3.6 mmol/L (3.5-5.1)
[2021-09-11 06:53] LABS: INR 0.99 (0.9-1.15)
[2021-09-11 06:55] LABS: BUN/Creatinine Ratio 64.6; Bilirubin, Total 0.3 mg/dL (0.2-1.0); Phosphorus 2.6 mg/dL (2.5-4.90); Total Protein 5.6 g/dL (6.4-8.2)
[2021-09-11] MEDS: PROPOFOL 100 ML IV SCH ×3 (06:58→17:44)
[2021-09-11] MEDS: InsuLIN REG 1unit/0.01ml Soln (100units/ml) SC SCH ×3 (06:59→23:34)
[2021-09-11] MEDS: NOREPINEPHRINE BITARTRATE 16 MG in SODIUM CHL 0.9% 234 ML IV SCH (09:03)
[2021-09-11] MEDS: LINEZOLID 600MG/300ML 300 ML IV SCH ×2 (09:03→21:07)
[2021-09-11] MEDS: MIDAZOLAM DRIP 50 mg/50mL 50 ML IV SCH ×4 (09:03→23:21)
[2021-09-11] MEDS: CHOLECALCIFEROL (VITD3) 2,000 UNIT CAP/TAB PO SCH (09:03)
[2021-09-11] MEDS: DexAMETHasone SOD PHOS 10MG/1ML VIAL INJ IV SCH (09:03)
[2021-09-11] MEDS: FUROSEMIDE 20 MG/2 ML VIAL IV SCH ×2 (10:00→17:41)
[2021-09-11] MEDS: INSULIN LANTUS (GLARGINE) 1 /0.01ml (100units/ml) SC SCH ×2 (10:00→21:29)
[2021-09-11] MEDS: ATRACURIUM BESYLATE 1,000 MG in D5W 5% 150 ML IV SCH (10:59)
[2021-09-11] MEDS: TPN PER PHARMACY IV NR ×5 (18:26)
[2021-09-11] MEDS ORDERED: TPN PER PHARMACY IV NR ×8 (20:00)
[2021-09-12] VITALS (105 sets, daily range): BP systolic 88–138; BP diastolic 47–71
[2021-09-12] MEDS: BUDESONIDE (INHALATION) 0.5 MG/2 ML NEB NEB SCH ×3 (00:01→22:02)
[2021-09-12] MEDS: ALBUTEROL SULF 2.5 MG/0.5ML(0.5%) NEB SOLN NEB SCH ×6 (00:01→22:13)
[2021-09-12] MEDS: fentaNYL Drip 2500mCg/250mlNS 250 ML IV SCH ×2 (00:42→18:06)
[2021-09-12] MEDS: PROPOFOL 100 ML IV SCH (00:42)
[2021-09-12] MEDS: PANTOPRAZOLE 40mg/50ML NS AE 50 ML IV SCH (03:38)
[2021-09-12 04:56] LABS: Hematocrit 32.8 % (36.0-46.0); Mean Corpuscular Hemoglobin 30.4 pg (28.0-32.0); Mean Corpuscular Hgb Conc. 33.4 g/dL (32.0-36.0); Mean Corpuscular Volume 91.1 fL (80.0-100.0); Red Blood Cells 3.61 10^6/uL (4.0-5.20); Red Cell Distribution Width 14.8 % (11.8-14.3); White Blood Cell 11.4 10^3/uL (4.4-10.8)
[2021-09-12 05:11] LABS: Basophils % (manual) 0 (0.0-2.0); Blast Cells 0; Metamyelocytes % 0; Promyelocytes % 0; Reactive Lymphocytes 0
[2021-09-12 05:12] LABS: Albumin 1.9 g/dL (3.4-5.0); Magnesium 2.7 mg/dL (1.6-2.6); Potassium 3.9 mmol/L (3.5-5.1)
[2021-09-12 05:15] LABS: Bilirubin, Total 0.3 mg/dL (0.2-1.0); Phosphorus 4.8 mg/dL (2.5-4.90); Total Protein 5.8 g/dL (6.4-8.2)
[2021-09-12] MEDS: FUROSEMIDE 20 MG/2 ML VIAL IV SCH ×2 (06:14→17:57)
[2021-09-12] MEDS: METOCLOPRAMIDE HCL 5MG/ml INJ 2ml VIAL IV SCH ×3 (06:14→23:11)
[2021-09-12] MEDS: CEFEPIME 1 GM in SODIUM CHL 0.9% 50 ML IV SCH (06:14)
[2021-09-12] MEDS: ACCU-CHEK COMFORT CURVE STRIP VI SCH ×4 (06:15→23:12)
[2021-09-12] MEDS: InsuLIN REG 1unit/0.01ml Soln (100units/ml) SC SCH ×4 (06:16→23:31)
[2021-09-12 07:03] LABS: Band Neutrophils % (manual) 4; Eosinophils % (manual) 2 (0-7); Lymphocytes % (manual) 10 (10.0-50.0); Monocytes % (manual) 8 (0-12); Myelocytes % 1
[2021-09-12] MEDS: NOREPINEPHRINE BITARTRATE 16 MG in SODIUM CHL 0.9% 234 ML IV SCH (10:15)
[2021-09-12] MEDS: LINEZOLID 600MG/300ML 300 ML IV SCH (10:20)
[2021-09-12] MEDS: CHOLECALCIFEROL (VITD3) 2,000 UNIT CAP/TAB PO SCH (10:20)
[2021-09-12] MEDS: DexAMETHasone SOD PHOS 10MG/1ML VIAL INJ IV SCH (10:20)
[2021-09-12] MEDS: INSULIN LANTUS (GLARGINE) 1 /0.01ml (100units/ml) SC SCH ×2 (10:21→23:11)
[2021-09-12] MEDS: ATRACURIUM BESYLATE 1,000 MG in D5W 5% 150 ML IV SCH (12:30)
[2021-09-12] MEDS: Glucerna 1.2 Cal 1Liter BOTTLE GT SCH (12:33)
[2021-09-12] MEDS: CEFEPIME 2 GM in SODIUM CHL 0.9% 50 ML IV SCH ×2 (15:26→23:09)
[2021-09-12] MEDS: MIDAZOLAM DRIP 50 mg/50mL 50 ML IV SCH (19:51)
[2021-09-12] MEDS ORDERED: TPN PER PHARMACY IV NR ×7 (20:00)
[2021-09-12] MEDS: PANTOPRAZOLE 40 MG/10 ML VIAL INJ IV SCH (23:09)
[2021-09-13] VITALS (105 sets, daily range): BP systolic 77–129; BP diastolic 47–71
[2021-09-13 05:14] LABS: Hematocrit 31.9 % (36.0-46.0); Hemoglobin 10.4 g/dL (12.2-16.2); Mean Corpuscular Hemoglobin 29.9 pg (28.0-32.0); Mean Corpuscular Hgb Conc. 32.6 g/dL (32.0-36.0); Mean Corpuscular Volume 91.6 fL (80.0-100.0); Red Blood Cells 3.48 10^6/uL (4.0-5.20); Red Cell Distribution Width 14.9 % (11.8-14.3); White Blood Cell 10.5 10^3/uL (4.4-10.8)
[2021-09-13] MEDS: PROPOFOL 100 ML IV SCH ×3 (05:15→13:42)
[2021-09-13 05:18] LABS: Basophils % (manual) 0 (0.0-2.0); Blast Cells 0; Metamyelocytes % 0; Myelocytes % 0; Promyelocytes % 0; Reactive Lymphocytes 0
[2021-09-13] MEDS: CEFEPIME 2 GM in SODIUM CHL 0.9% 50 ML IV SCH ×3 (05:25→21:45)
[2021-09-13] MEDS: METOCLOPRAMIDE HCL 5MG/ml INJ 2ml VIAL IV SCH ×3 (05:26→21:56)
[2021-09-13 05:30] LABS: Calcium 7.7 mg/dL (8.5-10.1); Magnesium 2.2 mg/dL (1.6-2.6)
[2021-09-13 05:34] LABS: Bilirubin, Total 0.3 mg/dL (0.2-1.0); Phosphorus 2.6 mg/dL (2.5-4.90); Total Protein 5.7 g/dL (6.4-8.2)
[2021-09-13] MEDS: ACCU-CHEK COMFORT CURVE STRIP VI SCH ×3 (05:38→18:10)
[2021-09-13] MEDS: FUROSEMIDE 20 MG/2 ML VIAL IV SCH ×2 (05:39→18:11)
[2021-09-13] MEDS: InsuLIN REG 1unit/0.01ml Soln (100units/ml) SC SCH ×3 (05:40→18:10)
[2021-09-13 05:52] LABS: Band Neutrophils % (manual) 8; Eosinophils % (manual) 3 (0-7); Lymphocytes % (manual) 9 (10.0-50.0); Monocytes % (manual) 8 (0-12)
[2021-09-13] MEDS: ALBUTEROL SULF 2.5 MG/0.5ML(0.5%) NEB SOLN NEB SCH ×3 (08:14→18:26)
[2021-09-13] MEDS: BUDESONIDE (INHALATION) 0.5 MG/2 ML NEB NEB SCH ×2 (08:15→18:27)
[2021-09-13] MEDS: NOREPINEPHRINE BITARTRATE 16 MG in SODIUM CHL 0.9% 234 ML IV SCH ×2 (08:19→14:28)
[2021-09-13] MEDS: ATRACURIUM BESYLATE 1,000 MG in D5W 5% 150 ML IV SCH (08:19)
[2021-09-13] MEDS: DexAMETHasone SOD PHOS 10MG/1ML VIAL INJ IV SCH (09:38)
[2021-09-13] MEDS: CHOLECALCIFEROL (VITD3) 2,000 UNIT CAP/TAB PO SCH (09:39)
[2021-09-13] MEDS: Glucerna 1.2 Cal 1Liter BOTTLE GT SCH (09:39)
[2021-09-13] MEDS: PANTOPRAZOLE 40 MG/10 ML VIAL INJ IV SCH ×2 (09:39→21:46)
[2021-09-13] MEDS: INSULIN LANTUS (GLARGINE) 1 /0.01ml (100units/ml) SC SCH ×2 (09:40→21:47)
[2021-09-13] MEDS: MIDAZOLAM DRIP 50 mg/50mL 50 ML IV SCH ×2 (09:40→22:12)
[2021-09-13] MEDS: fentaNYL Drip 2500mCg/250mlNS 250 ML IV SCH (10:01)
[2021-09-13] MEDS ORDERED: ENOXAPARIN SOD 100 MG/1 ML SYRINGE SC ONE (12:00)
[2021-09-13] MEDS ORDERED: TPN PER PHARMACY IV NR ×9 (20:00)
[2021-09-13] MEDS: ENOXAPARIN SOD 100 MG/1 ML SYRINGE SC SCH (21:57)
[2021-09-14] VITALS (102 sets, daily range): BP systolic 87–127; BP diastolic 44–70
[2021-09-14] MEDS: ACCU-CHEK COMFORT CURVE STRIP VI SCH ×4 (00:08→17:53)
[2021-09-14] MEDS: PROPOFOL 100 ML IV SCH ×4 (01:33→18:27)
[2021-09-14] MEDS: fentaNYL Drip 2500mCg/250mlNS 250 ML IV SCH ×2 (01:35→14:59)
[2021-09-14 04:49] LABS: Hematocrit 29.7 % (36.0-46.0); Hemoglobin 9.7 g/dL (12.2-16.2); Mean Corpuscular Hemoglobin 29.7 pg (28.0-32.0); Mean Corpuscular Hgb Conc. 32.6 g/dL (32.0-36.0); Mean Corpuscular Volume 91.2 fL (80.0-100.0); Red Blood Cells 3.26 10^6/uL (4.0-5.20); Red Cell Distribution Width 14.4 % (11.8-14.3)
[2021-09-14 05:08] LABS: Calcium 8.1 mg/dL (8.5-10.1); Magnesium 3.1 mg/dL (1.6-2.6); Potassium 4.3 mmol/L (3.5-5.1)
[2021-09-14 05:13] LABS: BUN/Creatinine Ratio 86.2; Bilirubin, Total 0.3 mg/dL (0.2-1.0); Phosphorus 2.8 mg/dL (2.5-4.90); Total Protein 5.5 g/dL (6.4-8.2)
[2021-09-14] MEDS: FUROSEMIDE 20 MG/2 ML VIAL IV SCH ×2 (05:54→17:53)
[2021-09-14] MEDS: METOCLOPRAMIDE HCL 5MG/ml INJ 2ml VIAL IV SCH ×4 (05:55→21:46)
[2021-09-14] MEDS: InsuLIN REG 1unit/0.01ml Soln (100units/ml) SC SCH ×4 (05:55→18:00)
[2021-09-14] MEDS: CEFEPIME 2 GM in SODIUM CHL 0.9% 50 ML IV SCH ×3 (05:55→22:44)
[2021-09-14 06:11] LABS: Basophils % (manual) 0 (0.0-2.0); Blast Cells 0; Promyelocytes % 0; Reactive Lymphocytes 0
[2021-09-14] MEDS: BUDESONIDE (INHALATION) 0.5 MG/2 ML NEB NEB SCH ×2 (06:15→22:03)
[2021-09-14] MEDS: ALBUTEROL SULF 2.5 MG/0.5ML(0.5%) NEB SOLN NEB SCH ×3 (06:15→22:03)
[2021-09-14 07:27] LABS: Band Neutrophils % (manual) 1; Eosinophils % (manual) 3 (0-7); Lymphocytes % (manual) 7 (10.0-50.0); Metamyelocytes % 1; Monocytes % (manual) 4 (0-12); Myelocytes % 2
[2021-09-14] MEDS: ENOXAPARIN SOD 100 MG/1 ML SYRINGE SC SCH ×2 (09:48→21:46)
[2021-09-14] MEDS: DexAMETHasone SOD PHOS 10MG/1ML VIAL INJ IV SCH (09:48)
[2021-09-14] MEDS: PANTOPRAZOLE 40 MG/10 ML VIAL INJ IV SCH ×2 (09:48→21:45)
[2021-09-14] MEDS: CHOLECALCIFEROL (VITD3) 2,000 UNIT CAP/TAB PO SCH (09:48)
[2021-09-14] MEDS: INSULIN LANTUS (GLARGINE) 1 /0.01ml (100units/ml) SC SCH ×2 (10:08→21:46)
[2021-09-14] MEDS: ATRACURIUM BESYLATE 1,000 MG in D5W 5% 150 ML IV SCH (13:45)
[2021-09-14] MEDS ORDERED: TPN PER PHARMACY IV NR ×9 (20:00)
[2021-09-14] MEDS: MIDAZOLAM DRIP 50 mg/50mL 50 ML IV SCH (23:00)
[2021-09-15] VITALS (100 sets, daily range): BP systolic 80–161; BP diastolic 42–75
[2021-09-15] MEDS: ACCU-CHEK COMFORT CURVE STRIP VI SCH ×4 (00:23→17:21)
[2021-09-15] MEDS: PROPOFOL 100 ML IV SCH ×2 (01:11→10:02)
[2021-09-15 04:20] LABS: Hematocrit 29.9 % (36.0-46.0); Hemoglobin 9.7 g/dL (12.2-16.2); Mean Corpuscular Hemoglobin 29.7 pg (28.0-32.0); Mean Corpuscular Hgb Conc. 32.4 g/dL (32.0-36.0); Mean Corpuscular Volume 91.6 fL (80.0-100.0); Red Blood Cells 3.27 10^6/uL (4.0-5.20); Red Cell Distribution Width 14.4 % (11.8-14.3); White Blood Cell 14.4 10^3/uL (4.4-10.8)
[2021-09-15 04:29] LABS: Basophils % (manual) 0 (0.0-2.0); Blast Cells 0; Metamyelocytes % 0; Promyelocytes % 0; Reactive Lymphocytes 0
[2021-09-15 04:39] LABS: Potassium 4.7 mmol/L (3.5-5.1)
[2021-09-15 04:45] LABS: BUN/Creatinine Ratio 105.9; Calcium 8.4 mg/dL (8.5-10.1)
[2021-09-15] MEDS: fentaNYL Drip 2500mCg/250mlNS 250 ML IV SCH ×2 (05:23→21:27)
[2021-09-15] MEDS: FUROSEMIDE 20 MG/2 ML VIAL IV SCH ×2 (05:55→17:21)
[2021-09-15] MEDS: NOREPINEPHRINE BITARTRATE 16 MG in SODIUM CHL 0.9% 234 ML IV SCH (05:55)
[2021-09-15] MEDS: CEFEPIME 2 GM in SODIUM CHL 0.9% 50 ML IV SCH ×3 (05:56→21:26)
[2021-09-15] MEDS: InsuLIN REG 1unit/0.01ml Soln (100units/ml) SC SCH ×4 (05:56→17:17)
[2021-09-15] MEDS: METOCLOPRAMIDE HCL 5MG/ml INJ 2ml VIAL IV SCH ×3 (05:56→21:25)
[2021-09-15] MEDS: BUDESONIDE (INHALATION) 0.5 MG/2 ML NEB NEB SCH ×2 (06:12→22:15)
[2021-09-15] MEDS: ALBUTEROL SULF 2.5 MG/0.5ML(0.5%) NEB SOLN NEB SCH ×3 (06:12→22:15)
[2021-09-15 07:01] LABS: Band Neutrophils % (manual) 7; Eosinophils % (manual) 3 (0-7); Lymphocytes % (manual) 9 (10.0-50.0); Monocytes % (manual) 6 (0-12); Myelocytes % 6
[2021-09-15] MEDS: MIDAZOLAM DRIP 50 mg/50mL 50 ML IV SCH ×4 (08:50→21:28)
[2021-09-15] MEDS: PANTOPRAZOLE 40 MG/10 ML VIAL INJ IV SCH ×2 (09:55→21:25)
[2021-09-15] MEDS: DexAMETHasone SOD PHOS 10MG/1ML VIAL INJ IV SCH (09:56)
[2021-09-15] MEDS: CHOLECALCIFEROL (VITD3) 2,000 UNIT CAP/TAB PO SCH (09:56)
[2021-09-15] MEDS: INSULIN LANTUS (GLARGINE) 1 /0.01ml (100units/ml) SC SCH (10:00)
[2021-09-15] MEDS: ENOXAPARIN SOD 100 MG/1 ML SYRINGE SC SCH ×2 (10:21→21:25)
[2021-09-15] MEDS: ACETYLCYSTEINE 10 %(100MG/ML) SOL 4ML NEB SCH ×2 (14:14→22:15)
[2021-09-15] MEDS: ATRACURIUM BESYLATE 1,000 MG in D5W 5% 150 ML IV SCH (21:24)
[2021-09-16] VITALS (99 sets, daily range): BP systolic 81–189; BP diastolic 36–77
[2021-09-16] MEDS: ACCU-CHEK COMFORT CURVE STRIP VI SCH ×4 (00:03→17:54)
[2021-09-16 04:23] LABS: Hematocrit 29.5 % (36.0-46.0); Hemoglobin 10.1 g/dL (12.2-16.2); Mean Corpuscular Hemoglobin 31.3 pg (28.0-32.0); Mean Corpuscular Hgb Conc. 34.1 g/dL (32.0-36.0); Mean Corpuscular Volume 91.7 fL (80.0-100.0); Red Blood Cells 3.22 10^6/uL (4.0-5.20); Red Cell Distribution Width 14.6 % (11.8-14.3); White Blood Cell 18.9 10^3/uL (4.4-10.8)
[2021-09-16 04:35] LABS: Basophils % (manual) 0 (0.0-2.0); Blast Cells 0; Metamyelocytes % 0; Promyelocytes % 0; Reactive Lymphocytes 0
[2021-09-16 04:40] LABS: Potassium 4.6 mmol/L (3.5-5.1)
[2021-09-16 04:50] LABS: BUN/Creatinine Ratio 69.2; Calcium 8.6 mg/dL (8.5-10.1)
[2021-09-16 04:54] LABS: Band Neutrophils % (manual) 12; Eosinophils % (manual) 2 (0-7); Lymphocytes % (manual) 5 (10.0-50.0); Monocytes % (manual) 6 (0-12); Myelocytes % 7
[2021-09-16] MEDS: ACETYLCYSTEINE 10 %(100MG/ML) SOL 4ML NEB SCH ×3 (06:00→22:18)
[2021-09-16] MEDS: InsuLIN REG 1unit/0.01ml Soln (100units/ml) SC SCH ×4 (06:00→17:54)
[2021-09-16] MEDS: METOCLOPRAMIDE HCL 5MG/ml INJ 2ml VIAL IV SCH ×3 (06:02→21:37)
[2021-09-16] MEDS: CEFEPIME 2 GM in SODIUM CHL 0.9% 50 ML IV SCH ×3 (06:02→21:36)
[2021-09-16] MEDS: FUROSEMIDE 20 MG/2 ML VIAL IV SCH ×2 (06:04→17:53)
[2021-09-16] MEDS: ALBUTEROL SULF 2.5 MG/0.5ML(0.5%) NEB SOLN NEB SCH ×3 (07:15→22:18)
[2021-09-16] MEDS: BUDESONIDE (INHALATION) 0.5 MG/2 ML NEB NEB SCH ×2 (07:16→22:17)
[2021-09-16] MEDS: MIDAZOLAM DRIP 50 mg/50mL 50 ML IV SCH ×3 (08:02→21:37)
[2021-09-16] MEDS: PANTOPRAZOLE 40 MG/10 ML VIAL INJ IV SCH ×2 (09:56→21:37)
[2021-09-16] MEDS: ENOXAPARIN SOD 100 MG/1 ML SYRINGE SC SCH ×2 (09:56→22:07)
[2021-09-16] MEDS ORDERED: VANCOMYCIN PER PHARMACY 0 MG IV SCH (10:15)
[2021-09-16] MEDS: INSULIN LANTUS (GLARGINE) 1 /0.01ml (100units/ml) SC SCH (10:18)
[2021-09-16] MEDS: PROPOFOL 100 ML IV SCH ×4 (10:23→21:37)
[2021-09-16] MEDS: fentaNYL Drip 2500mCg/250mlNS 250 ML IV SCH (11:34)
[2021-09-16] MEDS: VANCOMYCIN 1GM/250ML 250 ML IV SCH (13:32)
[2021-09-16] MEDS: CHOLECALCIFEROL (VITD3) 2,000 UNIT CAP/TAB PO SCH (13:32)
[2021-09-16] MEDS: ATRACURIUM BESYLATE 1,000 MG in D5W 5% 150 ML IV SCH (21:36)
[2021-09-16] MEDS: NOREPINEPHRINE BITARTRATE 16 MG in SODIUM CHL 0.9% 234 ML IV SCH (22:07)
[2021-09-17] VITALS (105 sets, daily range): BP systolic 85–136; BP diastolic 40–68
[2021-09-17] MEDS: ACCU-CHEK COMFORT CURVE STRIP VI SCH ×4 (00:35→17:51)
[2021-09-17] MEDS: VANCOMYCIN 1GM/250ML 250 ML IV SCH ×2 (00:35→13:03)
[2021-09-17 04:49] LABS: Hematocrit 30.8 % (36.0-46.0); Hemoglobin 10.2 g/dL (12.2-16.2); Mean Corpuscular Hemoglobin 30.5 pg (28.0-32.0); Mean Corpuscular Hgb Conc. 33.2 g/dL (32.0-36.0); Mean Corpuscular Volume 91.8 fL (80.0-100.0); Red Blood Cells 3.36 10^6/uL (4.0-5.20); Red Cell Distribution Width 14.9 % (11.8-14.3); White Blood Cell 26.8 10^3/uL (4.4-10.8)
[2021-09-17 05:04] LABS: Basophils % (manual) 0 (0.0-2.0); Blast Cells 0; Myelocytes % 0; Promyelocytes % 0; Reactive Lymphocytes 0
[2021-09-17 05:17] LABS: BUN/Creatinine Ratio 64.8; Calcium 8.3 mg/dL (8.5-10.1)
[2021-09-17] MEDS: ALBUTEROL SULF 2.5 MG/0.5ML(0.5%) NEB SOLN NEB SCH ×3 (05:35→22:17)
[2021-09-17] MEDS: BUDESONIDE (INHALATION) 0.5 MG/2 ML NEB NEB SCH ×2 (05:36→22:17)
[2021-09-17] MEDS: ACETYLCYSTEINE 10 %(100MG/ML) SOL 4ML NEB SCH ×3 (05:36→22:17)
[2021-09-17] MEDS: InsuLIN REG 1unit/0.01ml Soln (100units/ml) SC SCH ×4 (06:00→17:51)
[2021-09-17] MEDS: METOCLOPRAMIDE HCL 5MG/ml INJ 2ml VIAL IV SCH ×3 (06:20→22:00)
[2021-09-17] MEDS: CEFEPIME 2 GM in SODIUM CHL 0.9% 50 ML IV SCH (06:20)
[2021-09-17] MEDS: FUROSEMIDE 20 MG/2 ML VIAL IV SCH (06:23)
[2021-09-17] MEDS: MIDAZOLAM DRIP 50 mg/50mL 50 ML IV SCH ×4 (08:00→18:49)
[2021-09-17] MEDS: PROPOFOL 100 ML IV SCH ×5 (08:32→21:00)
[2021-09-17] MEDS: PANTOPRAZOLE 40 MG/10 ML VIAL INJ IV SCH (09:34)
[2021-09-17] MEDS: ENOXAPARIN SOD 100 MG/1 ML SYRINGE SC SCH ×2 (09:35→22:00)
[2021-09-17] MEDS: CHOLECALCIFEROL (VITD3) 2,000 UNIT CAP/TAB PO SCH ×2 (09:35→11:36)
[2021-09-17] MEDS: INSULIN LANTUS (GLARGINE) 1 /0.01ml (100units/ml) SC SCH (10:00)
[2021-09-17 10:47] LABS: Band Neutrophils % (manual) 7; Eosinophils % (manual) 4 (0-7); Lymphocytes % (manual) 7 (10.0-50.0); Metamyelocytes % 1; Monocytes % (manual) 4 (0-12)
[2021-09-17] MEDS: fentaNYL Drip 2500mCg/250mlNS 250 ML IV SCH (11:36)
[2021-09-17] MEDS: MEROPENEM 1GM IVPB 100 ML IV SCH ×2 (14:43→22:00)
[2021-09-17] MEDS: ROCURONIUM 10MG/ML 10ML VIAL IV PRN (15:09)
[2021-09-17] MEDS: NOREPINEPHRINE BITARTRATE 16 MG in SODIUM CHL 0.9% 234 ML IV SCH (21:15)
[2021-09-18] VITALS (104 sets, daily range): BP systolic 50–122; BP diastolic 41–59
[2021-09-18] MEDS: MIDAZOLAM DRIP 50 mg/50mL 50 ML IV SCH ×4 (00:30→22:45)
[2021-09-18] MEDS: PROPOFOL 100 ML IV SCH ×4 (01:30→23:30)
[2021-09-18] MEDS: ROCURONIUM 10MG/ML 10ML VIAL IV PRN ×3 (01:45→22:01)
[2021-09-18] MEDS: ACETYLCYSTEINE 10 %(100MG/ML) SOL 4ML NEB SCH ×3 (05:44→18:37)
[2021-09-18] MEDS: BUDESONIDE (INHALATION) 0.5 MG/2 ML NEB NEB SCH ×2 (05:44→18:37)
[2021-09-18] MEDS: ALBUTEROL SULF 2.5 MG/0.5ML(0.5%) NEB SOLN NEB SCH ×3 (05:44→18:37)
[2021-09-18 05:58] LABS: Hemoglobin 10.1 g/dL (12.2-16.2)
[2021-09-18 06:00] LABS: Hematocrit 29.7 % (36.0-46.0); Mean Corpuscular Hemoglobin 31.6 pg (28.0-32.0); Mean Corpuscular Volume 93.1 fL (80.0-100.0); Red Blood Cells 3.19 10^6/uL (4.0-5.20)
[2021-09-18] MEDS: METOCLOPRAMIDE HCL 5MG/ml INJ 2ml VIAL IV SCH ×4 (06:00→22:00)
[2021-09-18] MEDS: MEROPENEM 1GM IVPB 100 ML IV SCH ×3 (06:00→22:15)
[2021-09-18] MEDS: InsuLIN REG 1unit/0.01ml Soln (100units/ml) SC SCH ×4 (06:00→18:00)
[2021-09-18] MEDS: ACCU-CHEK COMFORT CURVE STRIP VI SCH ×4 (06:00→18:04)
[2021-09-18 06:07] LABS: White Blood Cell 39.5 10^3/uL (4.4-10.8)
[2021-09-18 06:08] LABS: Basophils % (manual) 0 (0.0-2.0); Blast Cells 0; Metamyelocytes % 0; Myelocytes % 0; Promyelocytes % 0; Reactive Lymphocytes 0
[2021-09-18 06:37] LABS: Calcium 8.4 mg/dL (8.5-10.1); Potassium 4.6 mmol/L (3.5-5.1)
[2021-09-18 06:41] LABS: BUN/Creatinine Ratio 42.4
[2021-09-18 07:26] LABS: Band Neutrophils % (manual) 22; Eosinophils % (manual) 7 (0-7); Lymphocytes % (manual) 4 (10.0-50.0); Monocytes % (manual) 1 (0-12)
[2021-09-18] MEDS: NOREPINEPHRINE BITARTRATE 32 MG in SODIUM CHL 0.9% 218 ML IV SCH (07:45)
[2021-09-18] MEDS: INSULIN LANTUS (GLARGINE) 1 /0.01ml (100units/ml) SC SCH (10:00)
[2021-09-18] MEDS: levoFLOXacin 750MG 150 ML IV SCH (10:00)
[2021-09-18] MEDS: ENOXAPARIN SOD 100 MG/1 ML SYRINGE SC SCH ×2 (10:08→21:58)
[2021-09-18] MEDS: PANTOPRAZOLE 40 MG/10 ML VIAL INJ IV SCH (10:08)
[2021-09-18] MEDS: ALBUMIN 25% 100 ML IV SCH ×2 (10:08→17:45)
[2021-09-18] MEDS: fentaNYL Drip 2500mCg/250mlNS 250 ML IV SCH ×3 (10:28→22:45)
[2021-09-18] MEDS: VANCOMYCIN 1GM/250ML 250 ML IV SCH ×2 (12:00)
[2021-09-18] MEDS: metroNIDAZOLE 500MG/100ML 100 ML IV SCH ×2 (14:00→21:57)
[2021-09-18] MEDS ORDERED: FUROSEMIDE 40 MG/4 ML VIAL IV ONE (16:45)
[2021-09-18] MEDS: PHENYLEPHRINE IV 250 ML IV SCH (19:00)
[2021-09-19] VITALS (107 sets, daily range): BP systolic 88–117; BP diastolic 44–56
[2021-09-19] MEDS: VANCOMYCIN 1GM/250ML 250 ML IV SCH ×3 (00:15→23:57)
[2021-09-19] MEDS: ALBUMIN 25% 100 ML IV SCH (01:11)
[2021-09-19] MEDS: PROPOFOL 100 ML IV SCH ×5 (01:20→23:00)
[2021-09-19] MEDS: PHENYLEPHRINE IV 250 ML IV SCH ×2 (02:25→10:45)
[2021-09-19] MEDS: NOREPINEPHRINE BITARTRATE 32 MG in SODIUM CHL 0.9% 218 ML IV SCH (02:30)
[2021-09-19] MEDS: MIDAZOLAM DRIP 50 mg/50mL 50 ML IV SCH ×4 (02:30→23:00)
[2021-09-19 04:38] LABS: Hematocrit 22.4 % (36.0-46.0); Hemoglobin 7.7 g/dL (12.2-16.2); Mean Corpuscular Hemoglobin 31.8 pg (28.0-32.0); Mean Corpuscular Hgb Conc. 34.3 g/dL (32.0-36.0); Mean Corpuscular Volume 92.9 fL (80.0-100.0); Red Blood Cells 2.41 10^6/uL (4.0-5.20); Red Cell Distribution Width 15.1 % (11.8-14.3); White Blood Cell 29.4 10^3/uL (4.4-10.8)
[2021-09-19] MEDS: ROCURONIUM 10MG/ML 10ML VIAL IV PRN ×2 (04:42→09:58)
[2021-09-19 04:49] LABS: INR 1.06 (0.9-1.15)
[2021-09-19 04:50] LABS: Basophils % (manual) 0 (0.0-2.0); Blast Cells 0; Metamyelocytes % 0; Promyelocytes % 0; Reactive Lymphocytes 0
[2021-09-19] MEDS: ACETYLCYSTEINE 10 %(100MG/ML) SOL 4ML NEB SCH ×3 (05:28→22:52)
[2021-09-19] MEDS: BUDESONIDE (INHALATION) 0.5 MG/2 ML NEB NEB SCH ×2 (05:28→22:52)
[2021-09-19] MEDS: ALBUTEROL SULF 2.5 MG/0.5ML(0.5%) NEB SOLN NEB SCH ×3 (05:28→22:51)
[2021-09-19 05:30] LABS: Band Neutrophils % (manual) 38; Eosinophils % (manual) 3 (0-7); Lymphocytes % (manual) 2 (10.0-50.0); Monocytes % (manual) 2 (0-12); Myelocytes % 3
[2021-09-19] MEDS: InsuLIN REG 1unit/0.01ml Soln (100units/ml) SC SCH ×4 (06:00→18:00)
[2021-09-19] MEDS: METOCLOPRAMIDE HCL 5MG/ml INJ 2ml VIAL IV SCH ×3 (06:17→22:00)
[2021-09-19] MEDS: ACCU-CHEK COMFORT CURVE STRIP VI SCH ×5 (06:17→23:57)
[2021-09-19] MEDS: metroNIDAZOLE 500MG/100ML 100 ML IV SCH ×3 (06:17→22:00)
[2021-09-19] MEDS ORDERED: EPINEPHrine HCL 1 MG/1 ML AMP ONE (09:33)
[2021-09-19] MEDS ORDERED: LIDOCAINE HCL 2% TOP JELLY 5ML TOP ONE (09:33)
[2021-09-19] MEDS ORDERED: LIDOCAINE 2%HCL (LOCAL ANESTH.) INJ 20ML MDV ONE (09:33)
[2021-09-19] MEDS: CHOLECALCIFEROL (VITD3) 2,000 UNIT CAP/TAB PO SCH (09:55)
[2021-09-19] MEDS: PANTOPRAZOLE 40 MG/10 ML VIAL INJ IV SCH (09:55)
[2021-09-19] MEDS: ENOXAPARIN SOD 100 MG/1 ML SYRINGE SC SCH (09:55)
[2021-09-19] MEDS: INSULIN LANTUS (GLARGINE) 1 /0.01ml (100units/ml) SC SCH (09:55)
[2021-09-19] MEDS: MEROPENEM 1GM IVPB 100 ML IV SCH ×3 (09:55→22:00)
[2021-09-19] MEDS ORDERED: FUROSEMIDE 40 MG/4 ML VIAL ONE (11:35)
[2021-09-19] MEDS ORDERED: FUROSEMIDE 40 MG/4 ML VIAL IV ONE (11:45)
[2021-09-19] MEDS: levoFLOXacin 750MG 150 ML IV SCH (11:52)
[2021-09-19] MEDS ORDERED: MICAFUNGIN SODIUM 100 MG in SODIUM CHL 0.9% 100 ML IV ONE (15:45)
[2021-09-19] MEDS: fentaNYL Drip 2500mCg/250mlNS 250 ML IV SCH (20:00)
[2021-09-19] MEDS ORDERED: NOREPINEPHRINE 8 MG/250ML KIT 250 ML IV ONE (20:07)
[2021-09-20] VITALS (102 sets, daily range): BP systolic 85–116; BP diastolic 34–65
[2021-09-20] MEDS: PROPOFOL 100 ML IV SCH ×3 (03:00→23:45)
[2021-09-20] MEDS: MIDAZOLAM DRIP 50 mg/50mL 50 ML IV SCH ×6 (03:00→23:44)
[2021-09-20 04:52] LABS: Hematocrit 32.3 % (36.0-46.0); Hemoglobin 10.5 g/dL (12.2-16.2); Mean Corpuscular Hemoglobin 30.2 pg (28.0-32.0); Mean Corpuscular Hgb Conc. 32.4 g/dL (32.0-36.0); Mean Corpuscular Volume 93.2 fL (80.0-100.0); Red Blood Cells 3.47 10^6/uL (4.0-5.20); Red Cell Distribution Width 15.2 % (11.8-14.3); White Blood Cell 25.8 10^3/uL (4.4-10.8)
[2021-09-20 05:03] LABS: Basophils % (manual) 0 (0.0-2.0); Blast Cells 0; Metamyelocytes % 0; Myelocytes % 0; Promyelocytes % 0; Reactive Lymphocytes 0
[2021-09-20 05:13] LABS: Albumin 2.6 g/dL (3.4-5.0); Calcium 8.3 mg/dL (8.5-10.1); Potassium 4.4 mmol/L (3.5-5.1)
[2021-09-20 05:19] LABS: BUN/Creatinine Ratio 17.2; Bilirubin, Total 0.8 mg/dL (0.2-1.0); Total Protein 5.8 g/dL (6.4-8.2)
[2021-09-20] MEDS: ACCU-CHEK COMFORT CURVE STRIP VI SCH ×3 (06:00→18:28)
[2021-09-20] MEDS: METOCLOPRAMIDE HCL 5MG/ml INJ 2ml VIAL IV SCH ×3 (06:00→22:00)
[2021-09-20] MEDS: metroNIDAZOLE 500MG/100ML 100 ML IV SCH ×3 (06:00→22:00)
[2021-09-20] MEDS: InsuLIN REG 1unit/0.01ml Soln (100units/ml) SC SCH ×4 (06:00→18:00)
[2021-09-20] MEDS: MEROPENEM 1GM IVPB 100 ML IV SCH (06:00)
[2021-09-20 06:08] LABS: Band Neutrophils % (manual) 26; Eosinophils % (manual) 4 (0-7); Lymphocytes % (manual) 1 (10.0-50.0); Monocytes % (manual) 4 (0-12)
[2021-09-20] MEDS: ACETYLCYSTEINE 10 %(100MG/ML) SOL 4ML NEB SCH ×3 (07:04→21:59)
[2021-09-20] MEDS: BUDESONIDE (INHALATION) 0.5 MG/2 ML NEB NEB SCH ×2 (07:04→21:59)
[2021-09-20] MEDS: ALBUTEROL SULF 2.5 MG/0.5ML(0.5%) NEB SOLN NEB SCH ×3 (07:04→21:58)
[2021-09-20] MEDS ORDERED: VANCOMYCIN 1GM/250ML 250 ML IV ONE (09:53)
[2021-09-20] MEDS: PANTOPRAZOLE 40 MG/10 ML VIAL INJ IV SCH (10:34)
[2021-09-20] MEDS: CHOLECALCIFEROL (VITD3) 2,000 UNIT CAP/TAB PO SCH (10:39)
[2021-09-20] MEDS: PHENYLEPHRINE IV 250 ML IV SCH (11:45)
[2021-09-20] MEDS: ATRACURIUM BESYLATE 1,000 MG in D5W 5% 150 ML IV SCH ×2 (12:00→12:13)
[2021-09-20] MEDS: MICAFUNGIN SODIUM 100 MG in SODIUM CHL 0.9% 100 ML IV SCH (12:54)
[2021-09-20] MEDS: NOREPINEPHRINE BITARTRATE 32 MG in SODIUM CHL 0.9% 218 ML IV SCH (15:53)
[2021-09-20] MEDS: fentaNYL Drip 2500mCg/250mlNS 250 ML IV SCH (19:30)
[2021-09-20] MEDS: Glucerna 1.2 Cal 1Liter BOTTLE GT SCH (20:00)
[2021-09-20] MEDS: MEROPENEM 500MG IVPB 50 ML IV SCH (22:00)
[2021-09-21] VITALS (63 sets, daily range): BP systolic 84–144; BP diastolic 51–81
[2021-09-21] MEDS: NOREPINEPHRINE BITARTRATE 32 MG in SODIUM CHL 0.9% 218 ML IV SCH (02:26)
[2021-09-21] MEDS: MIDAZOLAM DRIP 50 mg/50mL 50 ML IV SCH (02:50)
[2021-09-21 04:22] LABS: Hematocrit 31.6 % (36.0-46.0); Hemoglobin 10.6 g/dL (12.2-16.2); Mean Corpuscular Hgb Conc. 33.5 g/dL (32.0-36.0); Mean Corpuscular Volume 92.4 fL (80.0-100.0); Red Blood Cells 3.42 10^6/uL (4.0-5.20); Red Cell Distribution Width 14.9 % (11.8-14.3); White Blood Cell 22.2 10^3/uL (4.4-10.8)
[2021-09-21 04:37] LABS: Albumin 2.4 g/dL (3.4-5.0); Calcium 8.2 mg/dL (8.5-10.1); Potassium 4.4 mmol/L (3.5-5.1)
[2021-09-21 04:39] LABS: BUN/Creatinine Ratio 14.3
[2021-09-21 04:41] LABS: Bilirubin, Total 0.8 mg/dL (0.2-1.0); Total Protein 5.7 g/dL (6.4-8.2)
[2021-09-21 04:52] LABS: Basophils % (manual) 0 (0.0-2.0); Blast Cells 0; Metamyelocytes % 0; Promyelocytes % 0; Reactive Lymphocytes 0
[2021-09-21] MEDS: PROPOFOL 100 ML IV SCH (05:00)
[2021-09-21 05:25] LABS: Band Neutrophils % (manual) 14; Eosinophils % (manual) 4 (0-7); Lymphocytes % (manual) 2 (10.0-50.0); Monocytes % (manual) 2 (0-12); Myelocytes % 1
[2021-09-21] MEDS: fentaNYL Drip 2500mCg/250mlNS 250 ML IV SCH (05:30)
[2021-09-21] MEDS: METOCLOPRAMIDE HCL 5MG/ml INJ 2ml VIAL IV SCH (05:42)
[2021-09-21] MEDS: metroNIDAZOLE 500MG/100ML 100 ML IV SCH (05:42)
[2021-09-21] MEDS: ACCU-CHEK COMFORT CURVE STRIP VI SCH ×2 (06:00)
[2021-09-21] MEDS: ALBUTEROL SULF 2.5 MG/0.5ML(0.5%) NEB SOLN NEB SCH (07:25)
[2021-09-21] MEDS: BUDESONIDE (INHALATION) 0.5 MG/2 ML NEB NEB SCH (07:25)
[2021-09-21] MEDS: ACETYLCYSTEINE 10 %(100MG/ML) SOL 4ML NEB SCH (07:25)
[2021-09-21] MEDS ORDERED: levoFLOXacin 500MG 100 ML IV SCH (09:00)
[2021-09-21] MEDS: PANTOPRAZOLE 40 MG/10 ML VIAL INJ IV SCH (10:00)
[2021-09-21] MEDS ORDERED: INSULIN LANTUS (GLARGINE) 1 /0.01ml (100units/ml) SC SCH (10:00)
[2021-09-21] MEDS: MEROPENEM 500MG IVPB 50 ML IV SCH (10:55)
[2021-09-21] MEDS: MICAFUNGIN SODIUM 100 MG in SODIUM CHL 0.9% 100 ML IV SCH (10:56)
[2021-09-21] MEDS: InsuLIN REG 1unit/0.01ml Soln (100units/ml) SC SCH ×2 (12:00)
[2021-09-21] MEDS: ATRACURIUM BESYLATE 1,000 MG in D5W 5% 150 ML IV SCH (12:00)
[2021-09-21] MEDS ORDERED: MORPHINE SULFATE INJECTION 2 MG/ML SYRG IV PRN (14:00)
[2021-09-21] MEDS ORDERED: LORazepam 2MG/ML-1ML VIAL IV PRN (14:00)
== END 2021-09-21 19:26 | DRG 130 ==
LOC: ER 14:26 → EDBD 14:26 → TELE 17:26 → TELE-E-ADS 09-02 17:32 → ICU WEST 09-06 15:48
PROVIDERS: ADMIT Hospitalist; ATTEND Internal Medicine
PROC: XW033E5 Introduction of Remdesivir Anti-infective into Peripheral Vein, Percutaneous Approach, New Technology Group 5 (ICD-10-PCS; 2021-08-30)
PROC: 5A0935A Assistance with Respiratory Ventilation, Less than 24 Consecutive Hours, High Flow/Velocity Cannula (ICD-10-PCS; 2021-09-02)
PROC: 5A1955Z Respiratory Ventilation, Greater than 96 Consecutive Hours (ICD-10-PCS; principal; 2021-09-06)
PROC: 0BH17EZ Insertion of Endotracheal Airway into Trachea, Via Natural or Artificial Opening (ICD-10-PCS; 2021-09-06)
PROC: 02HV33Z Insertion of Infusion Device into Superior Vena Cava, Percutaneous Approach (ICD-10-PCS; 2021-09-06)
PROC: 5A09357 Assistance with Respiratory Ventilation, Less than 24 Consecutive Hours, Continuous Positive Airway Pressure (ICD-10-PCS; 2021-09-06)
PROC: XW033H5 Introduction of Tocilizumab into Peripheral Vein, Percutaneous Approach, New Technology Group 5 (ICD-10-PCS; 2021-09-09)
PROC: 0BH17EZ Insertion of Endotracheal Airway into Trachea, Via Natural or Artificial Opening (ICD-10-PCS; 2021-09-16)
PROC: 0B9G8ZZ Drainage of Left Upper Lung Lobe, Via Natural or Artificial Opening Endoscopic (ICD-10-PCS; 2021-09-19)
PROC: 30233N1 Transfusion of Nonautologous Red Blood Cells into Peripheral Vein, Percutaneous Approach (ICD-10-PCS; 2021-09-19)
DX: U07.1 COVID-19 (principal); J12.82 Pneumonia due to coronavirus disease 2019; N17.0 Acute kidney failure with tubular necrosis; R65.21 Severe sepsis with septic shock; A41.9 Sepsis, unspecified organism; D89.839 Cytokine release syndrome, grade unspecified; E87.1 Hypo-osmolality and hyponatremia; I95.9 Hypotension, unspecified; J15.1 Pneumonia due to Pseudomonas; I27.82 Chronic pulmonary embolism; J96.01 Acute respiratory failure with hypoxia; F31.9 Bipolar disorder, unspecified; E66.01 Morbid (severe) obesity due to excess calories; K80.20 Calculus of gallbladder without cholecystitis without obstruction; J98.11 Atelectasis; E78.5 Hyperlipidemia, unspecified; R73.9 Hyperglycemia, unspecified; F41.9 Anxiety disorder, unspecified; T38.0X5A Adverse effect of glucocorticoids and synthetic analogues, initial encounter; R04.89 Hemorrhage from other sites in respiratory passages; Z99.11 Dependence on respirator [ventilator] status; D64.9 Anemia, unspecified; Y92.89 Other specified places as the place of occurrence of the external cause; Z86.718 Personal history of other venous thrombosis and embolism; Z79.01 Long term (current) use of anticoagulants; Z79.899 Other long term (current) drug therapy; Z51.5 Encounter for palliative care; Z68.30 Body mass index [BMI] 30.0-30.9, adult; K92.2 Gastrointestinal hemorrhage, unspecified
CPT/HCPCS: 31623; 36415; 36600; 71045; 76604; 80048; 80053; 80061; 80202; 80307; 81001; 82040; 82306; 82565; 82728; 82805; 82962; 83036; 83605; 83615; 83735; 83880; 84100; 84443; 84478; 84484; 85007; 85014; 85018; 85025; 85027; 85379; 85610; 85730; 86141; 86850; 86900; 86901; 86920; 87040; 87070; 87077; 87081; 87086; 87088; 87186; 87205; 87426; 87804; 93005; 93970; 94003; 94640; 96365; 96375; C9113; G0378; J0171; J0330; J0696; J1100; J1815; J1956; J2185; J2248; J2250; J2704; J3490; J7060; P9047